=== PATIENT | male | born 1945 | race African-American/Black ===

== ENCOUNTER 2023-01-25 10:00 | Day surgery (SDC) | payer OTHER, SELFPAY ==
--- NOTE | 2023-01-24 09:46 | P.CONAN_ITS ---
Documented by User: Marycarmen Bazan NP 01/24/23 09:50 HPI - Anesthesia Eval Consult details Narrative: 77yo M for Colonoscopy [facility] / [facility] Past Medical History Medical History Anemia Elevated cholesterol GERD (gastroesophageal reflux disease) HTN (hypertension) Surgical History Surgical History (Updated 01/25/23 @ 11:15 by Tia Laws MD) H/O colonoscopy (~2017) H/O pneumonectomy Social History Social History Patient Tobacco Use Status: Former Tobacco user Quit Date: >20 yrs ago Use of substances other than those prescribed or required for medical reasons: No Are you DNR?: No Advance Directives: No Advance Directives Information Provided: Yes Meds Allergies Allergy/AdvReac Type Severity Reaction Status Date / Time No Known Allergies Allergy Verified 01/25/23 10:16 Home Medications Medication Instructions Recorded Confirmed Last Taken Type aspirin 81 mg tablet,delayed 81 mg PO DAILY 01/24/23 01/25/23 01/18/23 History release atenolol 100 mg tablet 100 mg PO DAILY 01/24/23 01/25/23 01/25/23 08:00 History atorvastatin 20 mg tablet 20 mg PO QAM 01/24/23 01/25/23 Unknown History chlorthalidone 25 mg tablet 25 mg PO QAM 01/24/23 01/25/23 01/18/23 History lisinopril 40 mg tablet 40 mg PO QAM 01/24/23 01/25/23 Unknown History loratadine 10 mg tablet 10 mg PO DAILY 01/24/23 01/25/23 Unknown History multivitamin (One Daily 1 tab PO QAM 01/24/23 01/25/23 Unknown History Multivitamin tablet) nifedipine 60 mg tablet,extended 60 mg PO QAM 01/24/23 01/25/23 01/25/23 08:00 History release 24 hr omeprazole 40 mg capsule,delayed 40 mg PO QAM 01/24/23 01/25/23 Unknown History release sildenafil 25 mg tablet (Viagra) 25 mg PO DAILY PRN Sexual Activity 01/24/23 01/25/23 Unknown History spironolactone 25 mg tablet 50 mg PO QAM 01/24/23 01/25/23 01/18/23 History verapamil 200 mg capsule 24hr 400 mg PO QAM 01/24/23 01/25/[address],ext.release Exam Exam Date and Time: January 24, [id number] Assessment and Plan Assessment Anesthesia Assessment: Chart Reviewed Documented by User: Tia Laws MD 01/25/23 11:56 PMFSH Active Problems Active Problems: Patient on 6 cardiovascular meds ? all for BP. Denies any cardiac history Past Medical History Medical History Anemia Elevated cholesterol GERD (gastroesophageal reflux disease) HTN (hypertension) Family History Family history of problems with anesthesia: No Surgical History Surgical History (Updated 01/25/23 @ 11:15 by Tia Laws MD) H/O colonoscopy (~2017) H/O pneumonectomy History of Problems with Anesthesia: No Social History Social History Patient Tobacco Use Status: Former Tobacco user Quit Date: >20 yrs ago Use of substances other than those prescribed or required for medical reasons: No Are you DNR?: No Advance Directives: No Advance Directives Information Provided: Yes Meds Allergies Allergy/AdvReac Type Severity Reaction Status Date / Time No Known Allergies Allergy Verified 01/25/23 10:16 Home Medications Medication Instructions Recorded Confirmed Last Taken Type aspirin 81 mg tablet,delayed 81 mg PO DAILY 01/24/23 01/25/23 01/18/23 History release atenolol 100 mg tablet 100 mg PO DAILY 01/24/23 01/25/23 01/25/23 08:00 History atorvastatin 20 mg tablet 20 mg PO QAM 01/24/23 01/25/23 Unknown History chlorthalidone 25 mg tablet 25 mg PO QAM 01/24/23 01/25/23 01/18/23 History lisinopril 40 mg tablet 40 mg PO QAM 01/24/23 01/25/23 Unknown History loratadine 10 mg tablet 10 mg PO DAILY 01/24/23 01/25/23 Unknown History multivitamin (One Daily 1 tab PO QAM 01/24/23 01/25/23 Unknown History Multivitamin tablet) nifedipine 60 mg tablet,extended 60 mg PO QAM 01/24/23 01/25/23 01/25/23 08:00 History release 24 hr omeprazole 40 mg capsule,delayed 40 mg PO QAM 01/24/23 01/25/23 Unknown History release sildenafil 25 mg tablet (Viagra) 25 mg PO DAILY PRN Sexual Activity 01/24/23 01/25/23 Unknown History spironolactone 25 mg tablet 50 mg PO QAM 01/24/23 01/25/23 01/18/23 History verapamil 200 mg capsule 24hr 400 mg PO QAM 01/24/23 01/25/[address],ext.release Exam Height,Weight and Vital Signs: Height 5 ft 9 in Weight 77.111 kg Vital Signs Temp Pulse Resp BP Pulse Ox O2 Del Method 01/25/23 10:31 97.9 F 68 16 157/76 H 99 Room Air Airway Mallampati Class: II TM Dist: >3cm Neck ROM: Full Loose/Missing/Broken Teeth: Yes (Some missing. Denies broken or loose teeth) Heart: RRR Lungs: CTAB Assessment and Plan Assessment Anesthesia Assessment: Anesthesia Plan Discussed Final Anesthetic Review Family History of Problems with Anesthesia: No History of Problems with Anesthesia: No NPO: Yes ASA Class: III Final Preanesthetic Review: No Changes in Pt Med Stat, Meds/Allgs Chart Reviewed, Consent Obtained/Reviewed and Anes Risks/Benef Reviewed Patient Risk: Intermediate Procedure Risk: Low Assessment/Block/Sedation in SS: Assess/Block/Sedation-SS Anesthetic Plan Anesthetic Plan: MAC: Disposition: Standard PACU
[2023-01-25] VITALS (7 sets, daily range): BP systolic 79–157; BP diastolic 36–76; PULSE 58–68; RESP 12–16; TEMP 36.2–36.8; O2SAT 98–100; BMI 25.1
[2023-01-25] MEDS: Lactated Ringers 1,000 ML 100 ML IVCONT (10:37)
--- NOTE | 2023-01-25 11:36 | MHC.SHP ---
Pre-Procedural Eval Section A Date of Service: 01/25/23 The patient is an INPATIENT: No Changes since office visit: No Cold of Flu in the past 2 weeks, No New Medical Problems, No Changes in Medication and No Patient answered all questions The History & Physical has been completed within 30 days and I have reviewed it.: Yes Section B Chief Complaint: screening Allergies: Allergies Allergy/AdvReac Type Severity Reaction Status Date / Time No Known Allergies Allergy Verified 01/25/23 10:16 Plan I have reviewed the history and physical and performed a pertinent physical examination on my patient. No changes have occurred unless specified. Time Spent With Patient Time: Total time managing care of this patient today ____ minutes.
--- NOTE | 2023-01-25 12:19 | P.BOP_ITS ---
Brief Operative Note Date of Service: 01/25/23 Pre-op diagnosis: screening Post-op diagnosis: same Procedure: colonoscopy Surgeon: Everton Stephen Anesthesia: MAC Was an Secondary Spanish Teacher used for this Procedure?: No Estimated blood loss (mL): 2 Pathology: other Condition: stable Disposition: PACU
--- NOTE | 2023-01-25 23:06 | OP_ITS ---
DATE OF SERVICE: 01/25/2023 SURGEON: Everton Stephen MD INDICATIONS: Colon cancer screening and prior history of adenomatous colon polyps. PREOPERATIVE DIAGNOSIS: POSTOPERATIVE DIAGNOSIS: PROCEDURE PERFORMED: Colonoscopy to the terminal ileum with snare polypectomy. ESTIMATED BLOOD LOSS: COMPLICATIONS: ANESTHESIA: Medications: Monitored anesthesia care. ASSISTANTS: SPECIMENS: PROCEDURE DESCRIPTION: A history and physical performed. The risks and benefits of the procedure were explained to the patient. Informed consent was obtained. The patient was placed in the left lateral decubitus position. A digital rectal exam was performed and was found to be normal. The Olympus pediatric video colonoscope was introduced in the rectum and advanced to the cecum without difficulty. The cecum was identified by transillumination, palpation, and identification of ileocecal valve. Examination was performed. The scope was removed. He tolerated the procedure well and was returned to recovery area in stable condition. FINDINGS: The terminal ileum was examined. The visualized colonic mucosa was normal. The quality of the prep was good. Two polyps were identified. Both measured less than 10 mm and removed with a snare from 70 and 60 cm. No other polyps were identified. Retroflexed examination showed small internal hemorrhoids. IMPRESSION: Colon polyps. RECOMMENDATION: Follow up the biopsy results. MD BRODY Jose/STEVEL / [id number]
== END 2023-01-25 12:10 | disposition home or self-care (01) ==
PROVIDERS: PCP Internal Medicine; Visit Provider Internal Medicine Gastroenterology
PROC: 0DJD8ZZ Inspection of Lower Intestinal Tract, Via Natural or Artificial Opening Endoscopic (ICD-10-PCS; CPT 45378; principal; 2023-01-25 11:10)
DX: Z12.11 Encounter for screening for malignant neoplasm of colon (principal); Z86.010 Personal history of colon polyps; D12.4 Benign neoplasm of descending colon; K21.9 Gastro-esophageal reflux disease without esophagitis; I10 Essential (primary) hypertension; D64.9 Anemia, unspecified; Z79.82 Long term (current) use of aspirin; Z79.899 Other long term (current) drug therapy
CPT/HCPCS: 45385; 88305